=== PATIENT | female | born 1995 | race Caucasian/White ===

== ENCOUNTER 2018-10-04 00:22 | Emergency (ER) | payer SELFPAY ==
[~2018-10-04] VITALS: Ht 157.5 cm; Wt 99.8 kg
[2018-10-04 01:33] VITALS: BP_SYST 121
--- NOTE | 2018-10-04 03:02 | NUR ---
Pt called in x3. Patient left without being seen. No further treatment done. ER aware
== END 2018-10-04 03:02 | disposition left against medical advice (07) ==
LOC: SED 00:22
DX: R73.9 Hyperglycemia, unspecified (principal); R00.0 Tachycardia, unspecified; R06.02 Shortness of breath; Z53.21 Procedure and treatment not carried out due to patient leaving prior to being seen by health care provider
CPT/HCPCS: 82962

== ENCOUNTER 2020-06-14 19:29 | Emergency (ER) | payer BC ==
[~2020-06-14] VITALS: Ht 157.5 cm; Wt 122.5 kg
[2020-06-14 19:45] VITALS: BP_SYST 127
--- NOTE | 2020-06-14 19:45 | NUR ---
Patient came to ER with family. C/O nausea, vomitting x 2 days. Per patient reported, patient had nausea, vomitting and could not keep anything down. Hx DM type I , Last does, 11 AM today Humalog 30 units. A/O,X4, nausea, denies pain, no SOB. Patient waited inside [facility].
[2020-06-14] MEDS ORDERED: INSU100V SQ (19:55)
--- NOTE | 2020-06-14 20:03 | NUR ---
KYRA Pendleton at [facility] examining patient.
[2020-06-14] MEDS ORDERED: ONDANSETRON HCL 4 MG/2 ML VIAL IVP ONE (20:15)
[2020-06-14] MEDS ORDERED: PANTOPRAZOLE SODIUM 40 MG/VIAL (PROTONIX) IVP ONE (20:15)
[2020-06-14] MEDS ORDERED: NACL 0.9% 1,000 ML IV ONE ×2 (20:15→22:00)
--- NOTE | 2020-06-14 20:20 | NUR ---
PT A&O X4 FROM HOME C/O NAUSEA & VOMITING X2 DAYS. PT HX OF DM TYPE 1, LAST INSULIN DOSAGE THIS AM. PT REPORTS SHE USED TO HAVE INSULIN PUMP BUT IT SUPPOSED TO BE OFF OF IT FOR 6 MONTHS. PT DENIES EXCESSIVE THIRST, INCREASE IN URINATION, TROUBLE URINATING. PT REPORTS FEELING RAPID HEART BEAT WHEN WALKING AROUND. WILL CONTINUE TO MONITOR.
--- NOTE | 2020-06-14 20:25 | NUR ---
# 20 gauge angiocath placed to LEFT AC. Use of asceptic technique. Opsite placed over site. Blood return noted. Blood, blood cultures, lactic for lab drawn from site. Flushed with 10 cc of normal saline. No evidence of infiltration noted. Patient tolerated well.
[2020-06-14 20:31] LABS: BILIRUBIN,URINE NEGATIVE (NEGATIVE); BLOOD, URINE NEGATIVE (NEGATIVE); COLOR,URINE YELLOW (YELLOW); GLUCOSE,URINE 3+ (NEGATIVE); KETONES,URINE 3+ (NEGATIVE); LEUKOCYTE ESTERASE ,URINE NEGATIVE (NEGATIVE); NITRITE, URINE NEGATIVE (NEGATIVE); PROTEIN URINE NEGATIVE (NEGATIVE); UROBILINOGEN,URINE 0.2 (0.2-1.0)
[2020-06-14 20:48] LABS: BASOPHILS # (AUTO) 0.1 K/uL (0.0-0.2); BASOPHILS % (AUTO) 0.8 % (0.0-2.0); EOSINOPHILS # (AUTO) 0.1 K/uL (0.0-0.4); EOSINOPHILS % (AUTO) 0.8 % (0.0-4.0); HEMATOCRIT 39.1 % (36-48); LYMPHOCYTES # (AUTO) 1.9 K/uL (1.0-5.5); LYMPHOCYTES % (AUTO) 27.5 % (20.5-51.5); MEAN CORPUSCULAR HEMOGLOBIN 29 pg (27-31); MEAN CORPUSCULAR HGB CONC 33 % (32-36); MEAN CORPUSCULAR VOLUME 87 fL (79.0-98.0); MONOCYTES # (AUTO) 0.4 K/uL (0.0-1.0); MONOCYTES % (AUTO) 6.1 % (1.7-9.3); NEUTROPHILS # (AUTO) 4.5 K/uL (1.8-7.7); NEUTROPHILS % (AUTO) 64.8 % (40.0-70.0); PLATELET COUNT (AUTO) 299 K/uL (130-430); RED BLOOD CELL COUNT(AUTO) 4.51 MIL/uL (4.2-6.2); WHITE BLOOD COUNT (AUTO) 6.9 K/uL (4.8-10.8)
[2020-06-14 21:00] LABS: CLARITY/URINE HAZY (CLEAR)
--- NOTE | 2020-06-14 21:00 | NUR ---
Blood for labwork drawn from [place]. Patient tolerated WELL.
[2020-06-14 21:04] LABS: BACTERIA,URINE FEW /HPF (None Seen); MUCUS,URINE 2+ /LPF (None Seen); RBC,URINE NONE SEEN /HPF (0-3)
[2020-06-14] MEDS ORDERED: INSULIN REGULAR, HUMAN 10 UNITS/0.1 ML INJ IVP ONE (21:15)
[2020-06-14 21:29] LABS: CALCIUM 8.9 mg/dL (8.4-11.0); CREATININE 0.82 mg/dL (0.55-1.30); POTASSIUM 3.8 mmol/L (3.5-5.1)
[2020-06-14 21:36] LABS: PROTHROMBIN TIME 10.1 SECS (9.5-12.5)
[2020-06-14 21:40] LABS: ALBUMIN 3.1 g/dL (3.4-4.8); TOTAL BILIRUBIN 0.6 mg/dL (0.0-1.0)
--- NOTE | 2020-06-14 21:40 | NUR ---
SOBEIDA - BS 305. MD AWARE. MD ORDER 6 UNITS HUMULIN R IVP.
[2020-06-14] MEDS ORDERED: INSULIN REGULAR, HUMAN 10 UNITS/0.1 ML INJ ONE (21:43)
--- NOTE | 2020-06-14 21:47 | NUR ---
PT MEDICATED PER MD ORDERS. PT TOLERATED WELL.
--- NOTE | 2020-06-14 22:45 | NUR ---
SOBEIDA - BS 170. AWARE.
--- NOTE | 2020-06-14 22:46 | NUR ---
PT A&O X4, DENIES NAUSEA, STATES SHE IS FEELING BETTER.
--- NOTE | 2020-06-14 22:46 | NUR ---
Blood for labwork drawn from [facility]. Patient tolerated [facility]CH.
[2020-06-14 23:24] LABS: CALCIUM 8.5 mg/dL (8.4-11.0); CREATININE 0.98 mg/dL (0.55-1.30); POTASSIUM 3.9 mmol/L (3.5-5.1)
--- NOTE | 2020-06-14 23:32 | NUR ---
dr. diehl at bedside speaking with patient.
[2020-06-15 00:01] VITALS: BP_SYST 128
[2020-06-16] MEDS ORDERED: METF-795 PO (17:23)
[2020-06-16] MEDS ORDERED: DULA1.5P INJ (17:25)
== END 2020-06-15 00:01 | disposition home or self-care (01) ==
LOC: SED 19:29
DX: R11.2 Nausea with vomiting, unspecified (principal); E10.9 Type 1 diabetes mellitus without complications
CPT/HCPCS: 36415; 80048; 80053; 81000; 81025; 82009; 82962; 83605; 83690; 85025; 85610; 85730; 87040; 96361; 96374; 96375; 99284; C9113; J2405; J1815

== ENCOUNTER 2020-06-16 16:37 | Inpatient (IN) | payer BC, SELFPAY ==
[~2020-06-16] VITALS: Ht 157.5 cm; Wt 122.0 kg
[2020-06-16 16:37] VITALS: BP_SYST 125
[~2020-06-16 16:37] MED LIST: INSU100V SQ
[2020-06-16] MEDS ORDERED: ONDANSETRON HCL 4 MG/2 ML VIAL IVP ONE (17:00)
[2020-06-16] MEDS ORDERED: NACL 0.9% 1,000 ML IV ONE ×3 (17:00→19:15)
[2020-06-16] MEDS ORDERED: INSULIN REGULAR, HUMAN 10 UNITS/0.1 ML INJ IVP ONE (17:00)
[2020-06-16] MEDS ORDERED: METF-795 PO (17:23)
[2020-06-16] MEDS ORDERED: DULA1.5P INJ (17:25)
[2020-06-16] MEDS ORDERED: INSULIN REGULAR, HUMAN 100 UNITS in NS 99 ML IV ONE ×2 (17:30)
[2020-06-16 17:38] LABS: HEMATOCRIT 40.4 % (36-48); MEAN CORPUSCULAR HEMOGLOBIN 29 pg (27-31); MEAN CORPUSCULAR HGB CONC 32 % (32-36); MEAN CORPUSCULAR VOLUME 91 fL (79.0-98.0); PLATELET COUNT (AUTO) 353 K/uL (130-430); RED BLOOD CELL COUNT(AUTO) 4.46 MIL/uL (4.2-6.2); RED CELL DISTRIBUTION WIDTH 14.5 % (9.0-15.0)
[2020-06-16 17:42] LABS: BILIRUBIN,URINE NEGATIVE (NEGATIVE); BLOOD, URINE NEGATIVE (NEGATIVE); GLUCOSE,URINE 3+ (NEGATIVE); KETONES,URINE 3+ (NEGATIVE); LEUKOCYTE ESTERASE ,URINE NEGATIVE (NEGATIVE); NITRITE, URINE NEGATIVE (NEGATIVE); PH,URINE 5.5 (5.0-8.0); PROTEIN URINE NEGATIVE (NEGATIVE); UROBILINOGEN,URINE 0.2 (0.2-1.0)
[2020-06-16 17:45] LABS: CLARITY/URINE CLEAR (CLEAR); COLOR,URINE STRAW (YELLOW)
[2020-06-16 17:53] LABS: BACTERIA,URINE RARE /HPF (None Seen); MUCUS,URINE None Seen /LPF (None Seen); RBC,URINE NONE SEEN /HPF (0-3); WBC,URINE 0-3 /HPF (0-3)
[2020-06-16 18:04] LABS: ACETONE, SERUM MODERATE (NEGATIVE)
[2020-06-16 18:07] LABS: BARBITURATE, URINE NEGATIVE (NEG <=200); BENZODIAZEPINE, URINE NEGATIVE (NEG <=150); CANNABINOID, URINE NEGATIVE (NEG <=50); COCAINE, URINE NEGATIVE (NEG <=150); METHAMPHETAMINES SCREEN,URINE NEGATIVE (NEG <=500); OPIATE, URINE NEGATIVE (NEG <=100); PHENCYCLIDINE SCREEN,URINE NEGATIVE (NEG <=25); UR TRICYCLIC ANTIDEPRESSANTS NEGATIVE (NEG <=300); URINE AMPHETAMINE NEGATIVE (NEG <=500); URINE METHADONE NEGATIVE (NEG <=200); URINE OXYCODONE SCREEN NEGATIVE (NEG <=100); URINE PROPOXYPHENE SCREEN NEGATIVE (NEG <=300)
[2020-06-16 18:16] LABS: ALANINE AMINOTRANSFERASE 98 U/L (12-78); ALBUMIN 3.4 g/dL (3.4-4.8); ANION GAP 26 (5-15); ASPARTATE AMINOTRANSFERASE 99 U/L (10-37); CALCIUM 8.8 mg/dL (8.4-11.0); CHLORIDE 96 mmol/L (98-107); LIPASE 67 U/L (73-393); SODIUM SERUM 132 mmol/L (136-145); TOTAL BILIRUBIN 0.8 mg/dL (0.0-1.0); UREA NITROGEN, BLOOD 19 mg/dL (8-21)
[2020-06-16 18:19] LABS: BAND % (MANUAL) 8 % (0-6); LYMPHOCYTES % (MANUAL) 4 % (20-46)
[2020-06-16 18:20] LABS: BASOPHILS % (MANUAL) 0 % (0-2); EOSINOPHILS % (MANUAL) 0 % (0-7); MONOCYTES % (MANUAL) 2 % (0-11)
[2020-06-16 18:24] LABS: GFR AFRICAN AMERICAN 77 mL/min (>90)
[2020-06-16 18:26] LABS: GLUCOSE 560 mg/dL (70-99)
[2020-06-16] MEDS ORDERED: PANTOPRAZOLE SODIUM 40 MG/VIAL (PROTONIX) IVP ONE (19:45)
[2020-06-16] MEDS ORDERED: INSULIN REGULAR, HUMAN 100 UNITS/ML, 10 ML VIAL (humuLIN R) SUBCUT PRN (20:00)
[2020-06-16 20:41] VITALS: BP_SYST 159
[2020-06-16] MEDS: NACL 0.9% 1,000 ML IV SCH (20:45)
[2020-06-16 21:00] VITALS: BP_SYST 109
[2020-06-16 21:16] LABS: CALCIUM 7.5 mg/dL (8.4-11.0); POTASSIUM 4.4 mmol/L (3.5-5.1)
[2020-06-16] MEDS: D5/0.45 NS 1,000 ML IV PRN (21:30)
[2020-06-16] MEDS ORDERED: ACETAMINOPHEN 325 MG TABLET PO PRN (22:00)
[2020-06-16] MEDS ORDERED: METOCLOPRAMIDE HCL 10 MG/2 ML VIAL IVP PRN (22:00)
[2020-06-16] MEDS ORDERED: ONDANSETRON HCL 4 MG/2 ML VIAL IVP PRN (22:00)
[2020-06-16] MEDS ORDERED: INSULIN REGULAR, HUMAN 100 UNITS in NS 99 ML IV PRN ×2 (22:45)
[2020-06-16 23:00] VITALS: BP_SYST 110
[2020-06-17] VITALS (24 sets, daily range): BP systolic 97–146
[2020-06-17] MEDS: NACL 0.9% 1,000 ML IV SCH (02:40)
[2020-06-17] MEDS: D5/0.45 NS 1,000 ML IV PRN (05:39)
[2020-06-17 06:20] LABS: BASOPHILS % (AUTO) 0.4 % (0.0-2.0); EOSINOPHILS # (AUTO) 0.1 K/uL (0.0-0.4); EOSINOPHILS % (AUTO) 0.6 % (0.0-4.0); HEMATOCRIT 32.9 % (36-48); HEMOGLOBIN 10.9 g/dL (12.0-16.0); LYMPHOCYTES # (AUTO) 2.6 K/uL (1.0-5.5); LYMPHOCYTES % (AUTO) 31.9 % (20.5-51.5); MEAN CORPUSCULAR HEMOGLOBIN 29 pg (27-31); MEAN CORPUSCULAR HGB CONC 33 % (32-36); MEAN CORPUSCULAR VOLUME 88 fL (79.0-98.0); MONOCYTES # (AUTO) 0.6 K/uL (0.0-1.0); NEUTROPHILS # (AUTO) 4.9 K/uL (1.8-7.7); NEUTROPHILS % (AUTO) 60.1 % (40.0-70.0); PLATELET COUNT (AUTO) 255 K/uL (130-430); RED BLOOD CELL COUNT(AUTO) 3.75 MIL/uL (4.2-6.2); RED CELL DISTRIBUTION WIDTH 14.1 % (9.0-15.0); WHITE BLOOD COUNT (AUTO) 8.1 K/uL (4.8-10.8)
[2020-06-17 06:57] LABS: ALBUMIN 2.5 g/dL (3.4-4.8); BILIRUBIN,DIRECT 0.1 mg/dL (0.0-0.3); CALCIUM 7.9 mg/dL (8.4-11.0); CREATININE 0.81 mg/dL (0.55-1.30); POTASSIUM 3.6 mmol/L (3.5-5.1); THYROID STIMULATING HORMONE 0.78 uIu/mL (0.36-3.74); TOTAL BILIRUBIN 0.4 mg/dL (0.0-1.0)
[2020-06-17] MEDS ORDERED: NAPH,MB-DB/K PH,MBDB 250 MG TAB PO ONE ×2 (08:15)
[2020-06-17] MEDS ORDERED: INSULIN GLARGINE 100 UNITS/ML 10 ML VIAL SUBCUT ONE ×2 (08:15→08:30)
[2020-06-17] MEDS ORDERED: INSULIN Lispro 100 UNITS/ML VIAL (humaLOG) SUBCUT ONE ×5 (08:15→21:15)
[2020-06-17] MEDS: PANTOPRAZOLE SODIUM 40 MG TAB PO SCH (08:20)
[2020-06-17] MEDS: KCL 20 mEq in NS 1000 mL 1,000 ML IV SCH ×2 (08:40→20:51)
[2020-06-17] MEDS: cefTRIAXone 1 GM in D5W 50 ML IV SCH (08:40)
[2020-06-17] MEDS ORDERED: INSULIN REGULAR, HUMAN 100 UNITS/ML, 10 ML VIAL SUBCUT SCH ×2 (12:00→18:00)
[2020-06-17] MEDS ORDERED: INSULIN REGULAR, HUMAN 100 UNITS/ML, 10 ML VIAL SUBCUT ONE (12:00)
[2020-06-17] MEDS ORDERED: COMMUNICATION ORDER XX ONE ×4 (18:30→19:15)
[2020-06-17] MEDS ORDERED: [UNRECOGNIZED DRUG - REMARK] XX SCH (19:15)
[2020-06-17] MEDS ORDERED: INSULIN Lispro 100 UNITS/ML VIAL (humaLOG) SUBCUT SCH (21:00)
[2020-06-18] MEDS: KCL 20 mEq in NS 1000 mL 1,000 ML IV SCH ×2 (04:15→06:25)
[2020-06-18] MEDS ORDERED: INSULIN Lispro 100 UNITS/ML VIAL (humaLOG) SUBCUT SCH ×2 (07:00)
[2020-06-18 07:48] VITALS: BP_SYST 135
[2020-06-18 07:53] LABS: ALBUMIN 2.3 g/dL (3.4-4.8); CALCIUM 7.3 mg/dL (8.4-11.0); CREATININE 0.58 mg/dL (0.55-1.30); PHOSPHORUS 2.5 mg/dL (2.7-4.5); POTASSIUM 3.8 mmol/L (3.5-5.1); TOTAL BILIRUBIN 0.3 mg/dL (0.0-1.0)
[2020-06-18] MEDS: PANTOPRAZOLE SODIUM 40 MG TAB PO SCH (08:09)
[2020-06-18] MEDS: cefTRIAXone 1 GM in D5W 50 ML IV SCH (08:10)
[2020-06-18] MEDS ORDERED: INSULIN LISPRO SLIDING SCALE 100 UNITS/ML VIAL (humaLOG) SUBCUT PRN (09:00)
[2020-06-18] MEDS ORDERED: INSULIN GLARGINE 100 UNITS/ML 10 ML VIAL SUBCUT SCH (09:00)
[2020-06-18 10:06] LABS: HEPATITIS A AB, IgM Negative (Negative); HEPATITIS B CORE AB, IgM Negative (Negative); HEPATITIS B SURFACE AG Negative (Negative)
[2020-06-18] MEDS ORDERED: CLOTRIMAZOLE 1% TOPICAL CREAM 15 GM TP SCH (10:15)
[2020-06-18 10:36] VITALS: BP_SYST 142
[2020-06-18 11:05] VITALS: BP_SYST 142
[2020-06-18 12:00] VITALS: BP_SYST 142
== END 2020-06-18 13:25 | disposition home or self-care (01) | DRG 638 ==
LOC: SED 16:37 → SIC 19:49 → STU 06-17 23:04
PROVIDERS: ADMIT Internal Medicine; ATTEND Internal Medicine
DX: E10.10 Type 1 diabetes mellitus with ketoacidosis without coma (principal); E87.1 Hypo-osmolality and hyponatremia; Z68.42 Body mass index [BMI] 45.0-49.9, adult; D72.825 Bandemia; E66.01 Morbid (severe) obesity due to excess calories; E86.0 Dehydration; Z20.822 Contact with and (suspected) exposure to COVID-19; Z79.4 Long term (current) use of insulin
CPT/HCPCS: 36415; 36600; 71045; 76376; 80048; 80053; 80074; 80076; 80307; 81000-TC; 82009-TC; 82550-TC; 82803-TC; 82962; 83036; 83605; 83690-TC; 83735-TC; 84100-TC; 84443-TC; 84484; 85007; 85025; 85027; 87081; 93005; 96361; 96374; 96375; 99291; G0378; J0696; J1815; J2405; J3480; J7060